=== PATIENT | female | born 1965 | race Two or more races ===

== ENCOUNTER → 2024-03-06 | Outpatient (CLI) | payer BC, SELFPAY ==
[2024-03-06 14:36] LABS: Pathologist Comment May follow
[2024-03-06 14:55] LABS: RBC /Synovial Fluid 0.052 10^6/uL (0); Synovial Fld Mononuclear WBC # 0.601 10^3/ul; Synovial Fld Mononuclear WBC % 89.1 %; Synovial Fld Polynuclear WBC # 0.074 10^3/uL; Synovial Fld Polynuclear WBC % 10.9 %
[2024-03-06 15:26] LABS: AUTO B FLUID DILUENT BKGD CT WBC <0.1 RBC <0.01 (W<.1,R<.01)
[2024-03-06 15:27] LABS: CRYSTALS, BODY FLUID NO CRYSTALS SEEN; Source / Synovial Fluid R KNEE; Source- Body Fluid SYNOVIAL
[2024-03-06 15:28] LABS: Appearance /Synovial Fluid Turbid (CLEAR); Color / Synovial Fluid Red (Pale Yellow); Viscosity / Synovial Fluid Sl. Viscous (HIGH)
[2024-03-06 16:17] LABS: Lymph 87 %; Monocyte /Synovial Fluid 1 %; Neutrophil 2 % (0-25); Other Cell /Synovial Fluid 10 %
[2024-03-06 16:18] LABS: Body Fluid QC Type(s) BF1Q, BF2Q
[2024-03-07 10:44] LABS: Pathologist Review Reviewed
== END | disposition home or self-care (01) ==
LOC: LABSPEC 14:30
PROVIDERS: Referring Provider Internal Medicine Rheumatology; Visit Provider Internal Medicine Rheumatology
DX: M06.4 Inflammatory polyarthropathy (principal); M25.561 Pain in right knee
CPT/HCPCS: 87070; 87075; 87205; 89050; 89051; 89060